=== PATIENT | male | born 1950 | race Caucasian/White ===

== ENCOUNTER → 2023-07-20 09:17 | Outpatient (REF) | payer OTHER, SELFPAY | LOC: RAD 09:17 | PROVIDERS: ATTENDING PHYSICIAN Surgery; FAMILY PHYSICIAN Family Medicine | DX: R10.31 Right lower quadrant pain (principal); R10.32 Left lower quadrant pain | CPT/HCPCS: 72170 ==

== ENCOUNTER 2023-08-10 09:26 | Outpatient (RCR) | payer OTHER, SELFPAY | END 2023-08-14 12:01 | disposition home or self-care (01) | LOC: ROT 09:26 | PROVIDERS: ATTENDING PHYSICIAN Orthopaedic Surgery; FAMILY PHYSICIAN Family Medicine | DX: M72.0 Palmar fascial fibromatosis [Dupuytren] (principal); Z73.6 Limitation of activities due to disability | CPT/HCPCS: 97760 ==